=== PATIENT | male | born 1955 | race Caucasian/White ===

== ENCOUNTER 2018-10-26 14:59 | Outpatient (CLI) | payer OTHER ==
--- NOTE | 2018-10-26 15:22 | RAD ---
EXAM: Chest PA and lateral: HISTORY: Shortness of breath. Disability evaluation. COMPARISON: None FINDINGS: Heart: Normal Aorta: Unremarkable Pulmonary vessels: Normal Costophrenic angles: Costophrenic angles are clear. Lungs: There is scarring and retraction in the upper lobes. Lungs are hyperinflated. There is a well- circumscribed mass in the right midlung measuring 2.8 cm mediolateral. Craniocaudal dimension may be 4.2 cm. Pneumothorax: No pneumothorax Osseous structures: No osseous abnormalities IMPRESSION: 1. Scarring of the upper lobes with upward retraction of the bronchi. Hyperinflation is suspected. 2. Right lung mass. Malignancy cannot be excluded. CT is recommended. 3. CODE T
== END 2018-10-26 15:00 | disposition home or self-care (01) ==
LOC: BICRAD 14:59
PROVIDERS: ATTEND Internal Medicine
DX: Z02.71 Encounter for disability determination (principal); R91.8 Other nonspecific abnormal finding of lung field
CPT/HCPCS: 71046

== ENCOUNTER 2021-02-11 15:16 | Inpatient (IN) | payer MEDICARE, MEDICAID ==
[2021-02-11] MEDS ORDERED: Acetaminophen 325 MG TAB PO PRN (18:38)
[2021-02-11] MEDS ORDERED: hydrALAZINE 20 MG/ML VIAL SLOW IVP PRN (18:38)
[2021-02-11] MEDS ORDERED: Sodium Chloride 0.9% (PF) 10 ML VIAL FS PRN (18:45)
[2021-02-11] MEDS: Sodium Chloride 0.9% 1,000 ML IV SCH (18:58)
[2021-02-11 20:39] LABS: #Lymphocytes 1.9 thou/uL (1.20-3.40); #Monocytes 0.8 thou/uL (0.11-0.59); #Neutrophils 7.8 thou/uL (1.40-6.50); %Basophils 0.2 % (0.0-1.0); %Eosinophils 0.3 % (0.0-10.0); %Lymphocytes 17.6 % (21.0-51.0); %Neutrophils 73.9 % (42.0-75.0); Hemoglobin 9.3 g/dL (14.0-18.0); Mean Corpuscular HGB CONC 34.2 g/dL (32.0-36.0); Mean Corpuscular Hemoglobin 32.3 pg (27.0-31.0); Mean Corpuscular Volume 94.6 fL (78.0-98.0); Platelet Count 186 thou/uL (130-400); RBC Distribution Width 12.6 % (11.5-14.5); Red Blood Cell (RBC) Count 2.87 mill/uL (4.70-6.10); White Blood Cell (WBC) Count 10.5 thou/uL (4.8-10.8)
[2021-02-11] MEDS: Pantoprazole 40 MG VIAL IVP SCH (21:43)
[2021-02-12 04:34] LABS: #Eosinphils 0.1 thou/uL (0.0-0.7); #Lymphocytes 2.3 thou/uL (1.20-3.40); #Monocytes 0.5 thou/uL (0.11-0.59); #Neutrophils 5.2 thou/uL (1.40-6.50); %Basophils 0.2 % (0.0-1.0); %Eosinophils 1.7 % (0.0-10.0); %Lymphocytes 28.4 % (21.0-51.0); %Monocytes 6.1 % (0.0-10.0); %Neutrophils 63.5 % (42.0-75.0); Hemoglobin 8.2 g/dL (14.0-18.0); Mean Corpuscular HGB CONC 34.6 g/dL (32.0-36.0); Mean Corpuscular Hemoglobin 32.9 pg (27.0-31.0); Mean Corpuscular Volume 95.1 fL (78.0-98.0); Mean Platelet Volume 6.1 fL (7.4-10.4); Platelet Count 166 thou/uL (130-400); RBC Distribution Width 12.6 % (11.5-14.5); White Blood Cell (WBC) Count 8.2 thou/uL (4.8-10.8)
[2021-02-12 04:39] LABS: Anion Gap 8 mmol/L (10-20); BUN (Urea Nitrogen) 16 mg/dL (8.4-25.7); Calc. Creatinine Clearance 62 mL/min (70-130); Calcium 7.8 mg/dL (7.8-10.44); Carbon Dioxide 27 mmol/L (23-31); Chloride 106 mmol/L (98-107); Glucose 90 mg/dL (80-115); Potassium 3.3 mmol/L (3.5-5.1); Sodium 138 mmol/L (136-145)
[2021-02-12] MEDS: Sodium Chloride 0.9% 1,000 ML IV SCH ×2 (07:44→20:55)
[2021-02-12] MEDS ORDERED: Potassium Chloride 40 MEQ in Premix Bag 1 BAG IVPB SCH (08:15)
[2021-02-12] MEDS ORDERED: Potassium Chloride 40 MEQ in Sodium Chloride 0.9% 250 ML 250 ML IVPB SCH (08:30)
[2021-02-12] MEDS: Pantoprazole 40 MG VIAL IVP SCH (09:04)
[2021-02-12 09:11] LABS: PTT 27.4 sec (22.9-36.1); Prothrombin Time 12.7 sec (12.0-14.7)
[2021-02-12] MEDS ORDERED: Lidocaine 1% PF 5 ML VIAL ONE (11:26)
[2021-02-12] MEDS ORDERED: PROPOFOL 200 MG/20 ML VIAL ONE (11:26)
[2021-02-12] MEDS ORDERED: Promethazine HCl 25 MG/ML VIAL IM PRN (11:44)
[2021-02-12] MEDS ORDERED: Promethazine HCl 25 MG/ML VIAL IVPB PRN (11:44)
[2021-02-12] MEDS ORDERED: Ondansetron HCl/PF 4 MG/2 ML Vial IVP PRN (11:44)
[2021-02-12] MEDS ORDERED: NS 0.9% w/ 20 MEQ KCL 1,000 ML IV SCH (13:00)
[2021-02-12 15:24] VITALS: BMI 15.2
[2021-02-13 04:46] LABS: #Basophils 0.1 thou/uL (0.0-0.2); #Eosinphils 0.3 thou/uL (0.0-0.7); #Monocytes 0.5 thou/uL (0.11-0.59); #Neutrophils 5.4 thou/uL (1.40-6.50); %Basophils 0.7 % (0.0-1.0); %Eosinophils 3.2 % (0.0-10.0); %Lymphocytes 23.8 % (21.0-51.0); %Monocytes 6.6 % (0.0-10.0); %Neutrophils 65.8 % (42.0-75.0); Hemoglobin 6.8 g/dL (14.0-18.0); Mean Corpuscular HGB CONC 34.4 g/dL (32.0-36.0); Mean Corpuscular Hemoglobin 32.9 pg (27.0-31.0); Mean Corpuscular Volume 95.5 fL (78.0-98.0); Mean Platelet Volume 6.1 fL (7.4-10.4); Platelet Count 172 thou/uL (130-400); RBC Distribution Width 12.6 % (11.5-14.5); Red Blood Cell (RBC) Count 2.06 mill/uL (4.70-6.10); White Blood Cell (WBC) Count 8.2 thou/uL (4.8-10.8)
[2021-02-13 05:13] LABS: ALT (SGPT) 12 U/L (8-55); AST (SGOT) 17 U/L (5-34); Albumin 2.6 g/dL (3.4-4.8); Alkaline Phosphatase 40 U/L (40-110); Anion Gap 8 mmol/L (10-20); BUN (Urea Nitrogen) 13 mg/dL (8.4-25.7); Bilirubin, Total 0.3 mg/dL (0.2-1.2); Calc. Creatinine Clearance 66 mL/min (70-130); Calcium 8.1 mg/dL (7.8-10.44); Carbon Dioxide 26 mmol/L (23-31); Chloride 103 mmol/L (98-107); Glucose 100 mg/dL (80-115); Potassium 3.9 mmol/L (3.5-5.1); Protein, Total 4.6 g/dL (5.8-8.1); Sodium 133 mmol/L (136-145)
[2021-02-13] MEDS: Sodium Chloride 0.9% 1,000 ML IV SCH (10:01)
[2021-02-13] MEDS: Ondansetron PF 4 MG/2 ML Vial IVP PRN ×2 (10:03→18:16)
[2021-02-13] MEDS ORDERED: Iopamidol-370 76% 500 ML 1 ML ONE (10:42)
[2021-02-13 12:54] LABS: Hemoglobin 7.9 g/dL (14.0-18.0)
[2021-02-13 18:34] LABS: Hemoglobin 7.4 g/dL (14.0-18.0)
[2021-02-14] MEDS: Sodium Chloride 0.9% 1,000 ML IV SCH ×2 (00:45→13:30)
[2021-02-14 04:36] LABS: #Eosinphils 0.2 thou/uL (0.0-0.7); #Lymphocytes 1.9 thou/uL (1.20-3.40); #Monocytes 0.5 thou/uL (0.11-0.59); #Neutrophils 5.1 thou/uL (1.40-6.50); %Basophils 0.4 % (0.0-1.0); %Eosinophils 2.5 % (0.0-10.0); %Lymphocytes 24.3 % (21.0-51.0); %Neutrophils 66.8 % (42.0-75.0); Hemoglobin 6.9 g/dL (14.0-18.0); Mean Corpuscular HGB CONC 35.5 g/dL (32.0-36.0); Mean Corpuscular Hemoglobin 33.1 pg (27.0-31.0); Mean Corpuscular Volume 93.4 fL (78.0-98.0); Mean Platelet Volume 6.2 fL (7.4-10.4); Platelet Count 128 thou/uL (130-400); RBC Distribution Width 13.6 % (11.5-14.5); Red Blood Cell (RBC) Count 2.09 mill/uL (4.70-6.10); White Blood Cell (WBC) Count 7.7 thou/uL (4.8-10.8)
[2021-02-14 04:55] LABS: ALT (SGPT) 11 U/L (8-55); AST (SGOT) 12 U/L (5-34); Albumin 2.6 g/dL (3.4-4.8); Alkaline Phosphatase 33 U/L (40-110); Anion Gap 6 mmol/L (10-20); BUN (Urea Nitrogen) 18 mg/dL (8.4-25.7); Bilirubin, Total 0.4 mg/dL (0.2-1.2); Calc. Creatinine Clearance 62 mL/min (70-130); Calcium 7.7 mg/dL (7.8-10.44); Carbon Dioxide 24 mmol/L (23-31); Chloride 108 mmol/L (98-107); Globulin 1.8 g/dL (2.4-3.5); Glucose 97 mg/dL (80-115); Potassium 3.3 mmol/L (3.5-5.1); Protein, Total 4.4 g/dL (5.8-8.1); Sodium 135 mmol/L (136-145)
[2021-02-14 09:40] LABS: Magnesium 1.9 mg/dL (1.6-2.6)
[2021-02-14] MEDS: Potassium Chloride 20 MEQ in Premix Bag 1 BAG IVPB SCH ×2 (09:41→13:00)
[2021-02-14] MEDS: Pantoprazole 80 MG in Sodium Chloride 0.9% 100 ML IVPB SCH (16:12)
[2021-02-14 17:04] LABS: Hemoglobin 8.3 g/dL (14.0-18.0); Platelet Count 137 thou/uL (130-400)
[2021-02-15] MEDS: Pantoprazole 80 MG in Sodium Chloride 0.9% 100 ML IVPB SCH (01:05)
[2021-02-15] MEDS: Sodium Chloride 0.9% 1,000 ML IV SCH (04:32)
[2021-02-15 05:02] LABS: #Eosinphils 0.3 thou/uL (0.0-0.7); #Lymphocytes 1.6 thou/uL (1.20-3.40); #Monocytes 0.5 thou/uL (0.11-0.59); #Neutrophils 3.9 thou/uL (1.40-6.50); %Basophils 0.7 % (0.0-1.0); %Eosinophils 4.1 % (0.0-10.0); %Lymphocytes 25.1 % (21.0-51.0); %Monocytes 7.5 % (0.0-10.0); %Neutrophils 62.6 % (42.0-75.0); Mean Corpuscular HGB CONC 34.5 g/dL (32.0-36.0); Mean Corpuscular Hemoglobin 32.2 pg (27.0-31.0); Mean Corpuscular Volume 93.3 fL (78.0-98.0); Mean Platelet Volume 6.4 fL (7.4-10.4); Platelet Count 133 thou/uL (130-400); RBC Distribution Width 13.4 % (11.5-14.5); Red Blood Cell (RBC) Count 2.48 mill/uL (4.70-6.10); White Blood Cell (WBC) Count 6.2 thou/uL (4.8-10.8)
[2021-02-15 05:26] LABS: ALT (SGPT) 11 U/L (8-55); AST (SGOT) 15 U/L (5-34); Albumin 2.7 g/dL (3.4-4.8); Alkaline Phosphatase 34 U/L (40-110); Anion Gap 9 mmol/L (10-20); BUN (Urea Nitrogen) 10 mg/dL (8.4-25.7); Bilirubin, Total 0.9 mg/dL (0.2-1.2); Calc. Creatinine Clearance 66 mL/min (70-130); Calcium 7.6 mg/dL (7.8-10.44); Carbon Dioxide 21 mmol/L (23-31); Chloride 106 mmol/L (98-107); Globulin 1.9 g/dL (2.4-3.5); Glucose 96 mg/dL (80-115); Potassium 3.6 mmol/L (3.5-5.1); Protein, Total 4.6 g/dL (5.8-8.1); Sodium 132 mmol/L (136-145)
[2021-02-15 11:12] VITALS: BP 107/77; TEMP 98.2
== END 2021-02-15 13:22 | disposition home or self-care (01) | DRG 378 ==
LOC: 2NO 17:05
PROVIDERS: ADMIT Internal Medicine; ATTEND Family Medicine
PROC: 0DB68ZX Excision of Stomach, Via Natural or Artificial Opening Endoscopic, Diagnostic (ICD-10-PCS; principal; 2021-02-13)
PROC: 30233N1 Transfusion of Nonautologous Red Blood Cells into Peripheral Vein, Percutaneous Approach (ICD-10-PCS; 2021-02-13)
DX: K29.21 Alcoholic gastritis with bleeding (principal); E44.0 Moderate protein-calorie malnutrition; Z68.1 Body mass index [BMI] 19.9 or less, adult; D62 Acute posthemorrhagic anemia; I44.2 Atrioventricular block, complete; K52.9 Noninfective gastroenteritis and colitis, unspecified; I95.9 Hypotension, unspecified; D69.6 Thrombocytopenia, unspecified; E87.6 Hypokalemia; F10.10 Alcohol abuse, uncomplicated; J43.9 Emphysema, unspecified; Z87.891 Personal history of nicotine dependence; Z71.41 Alcohol abuse counseling and surveillance of alcoholic
CPT/HCPCS: 36415; 36430; 71045; 71260; 80048; 80053; 82607; 82746; 83735; 85025; 85610; 85730; 86850; 86900; 86901; 88305; 88312; 93005; 93010; 94640; C9113; J2405; J2704; J3480; J3490; J7050; J7620; P9016; Q9967

== ENCOUNTER 2022-02-11 18:05 | Inpatient (IN) | payer MEDICARE, MEDICAID ==
[2022-02-11 19:22] VITALS: BMI 17.3
[2022-02-11] MEDS ORDERED: Ondansetron PF 4 MG/2 ML Vial IVP PRN (21:34)
[2022-02-11] MEDS ORDERED: Senokot S 8.6-50 MG TAB PO PRN (21:34)
[2022-02-11] MEDS ORDERED: Bisacodyl 5 MG TAB PO PRN (21:34)
[2022-02-11] MEDS ORDERED: HYDROcodone/Acetaminophen 5/325 mg Tablet PO PRN (21:34)
[2022-02-11] MEDS ORDERED: Acetaminophen 325 MG TAB PO PRN (21:34)
[2022-02-11] MEDS ORDERED: Ondansetron ODT 4 MG TAB PO PRN (21:34)
[2022-02-11] MEDS ORDERED: Ketorolac Tromethamine 30 MG/ML VIAL IVP PRN (21:40)
[2022-02-11] MEDS: Sodium Chloride 0.9% 1,000 ML IV SCH (22:00)
[2022-02-11 22:17] LABS: Lactic Acid 2.1 mmol/L (0.5-2.2)
[2022-02-12 04:15] LABS: #Eosinphils 0.1 thou/uL (0.0-0.7); #Lymphocytes 1.6 thou/uL (1.20-3.40); #Monocytes 1.4 thou/uL (0.11-0.59); #Neutrophils 9.1 thou/uL (1.40-6.50); %Basophils 0.1 % (0.0-1.0); %Eosinophils 1.1 % (0.0-10.0); %Monocytes 11.5 % (0.0-10.0); %Neutrophils 74.2 % (42.0-75.0); Hemoglobin 10.3 g/dL (14.0-18.0); Mean Corpuscular HGB CONC 33.7 g/dL (32.0-36.0); Mean Corpuscular Hemoglobin 30.1 pg (27.0-31.0); Mean Corpuscular Volume 89.3 fL (78.0-98.0); Mean Platelet Volume 6.1 fL (7.4-10.4); Platelet Count 267 thou/uL (130-400); RBC Distribution Width 13.5 % (11.5-14.5); Red Blood Cell (RBC) Count 3.42 mill/uL (4.70-6.10); White Blood Cell (WBC) Count 12.2 thou/uL (4.8-10.8)
[2022-02-12] MEDS ORDERED: Potassium Chloride 20 MEQ TAB PO SCH (04:30)
[2022-02-12 04:36] LABS: ALT (SGPT) 8 U/L (8-55); AST (SGOT) 9 U/L (5-34); Albumin 3.1 g/dL (3.4-4.8); Alkaline Phosphatase 58 U/L (40-110); Anion Gap 10 mmol/L (10-20); BUN (Urea Nitrogen) 12 mg/dL (8.4-25.7); Bilirubin, Total 0.6 mg/dL (0.2-1.2); Calc. Creatinine Clearance 69 mL/min (70-130); Calcium 8.2 mg/dL (7.8-10.44); Carbon Dioxide 25 mmol/L (23-31); Chloride 106 mmol/L (98-107); Estimated GFR 96; Globulin 2.5 g/dL (2.4-3.5); Glucose 106 mg/dL (80-115); Potassium 3.4 mmol/L (3.5-5.1); Protein, Total 5.6 g/dL (5.8-8.1); Sodium 138 mmol/L (136-145)
[2022-02-12] MEDS: Ibuprofen 600 MG TAB PO SCH ×3 (05:07→21:18)
[2022-02-12] MEDS: Sodium Chloride 0.9% 1,000 ML IV SCH ×3 (05:09→16:56)
[2022-02-12 05:11] LABS: Magnesium 1.8 mg/dL (1.6-2.6)
[2022-02-12] MEDS ORDERED: Famotidine 20 MG TAB PO SCH (09:00)
[2022-02-12] MEDS: Enoxaparin Sodium 30 MG/0.3 ML SYRINGE SC SCH (09:24)
[2022-02-12] MEDS: Colchicine 0.6 MG TAB PO SCH (09:24)
[2022-02-12] MEDS ORDERED: Electrolyte Replacement Protocol 1 EACH FS SCH (14:30)
[2022-02-12] MEDS ORDERED: Electrolyte Replacement Protocol FS PRN (14:30)
[2022-02-12] MEDS ORDERED: Magnesium 2 GM/50 ML(in water) 2 GM in Premix Bag 1 BAG IVPB SCH (14:30)
[2022-02-12] MEDS ORDERED: guaiFENesin ER 600 MG TAB PO SCH (21:00)
[2022-02-13] MEDS ORDERED: Digoxin 0.5 MG/2 ML AMP SLOW IVP SCH ×2 (01:00→05:00)
[2022-02-13] MEDS: Sodium Chloride 0.9% 1,000 ML IV SCH (01:38)
[2022-02-13] MEDS: Amiodarone 450 MG, Admixture Fee 1 EACH in Dextrose 5% in Water 250 ML IVPB SCH ×2 (01:38→10:01)
[2022-02-13 01:45] LABS: ALT (SGPT) 9 U/L (8-55); AST (SGOT) 13 U/L (5-34); Albumin 3.3 g/dL (3.4-4.8); Alkaline Phosphatase 79 U/L (40-110); Bilirubin, Direct 0.3 mg/dL (0.1-0.3); Bilirubin, Total 0.6 mg/dL (0.2-1.2); Protein, Total 6.3 g/dL (5.8-8.1)
[2022-02-13 04:48] LABS: #Eosinphils 0.3 thou/uL (0.0-0.7); #Lymphocytes 1.1 thou/uL (1.20-3.40); #Monocytes 1.1 thou/uL (0.11-0.59); #Neutrophils 8.6 thou/uL (1.40-6.50); %Basophils 0.3 % (0.0-1.0); %Eosinophils 2.5 % (0.0-10.0); %Lymphocytes 9.5 % (21.0-51.0); %Monocytes 9.7 % (0.0-10.0); %Neutrophils 78.1 % (42.0-75.0); Hemoglobin 10.6 g/dL (14.0-18.0); Mean Corpuscular Hemoglobin 29.6 pg (27.0-31.0); Mean Corpuscular Volume 89.5 fL (78.0-98.0); Platelet Count 268 thou/uL (130-400); RBC Distribution Width 13.6 % (11.5-14.5); Red Blood Cell (RBC) Count 3.58 mill/uL (4.70-6.10)
[2022-02-13 05:15] LABS: ALT (SGPT) 8 U/L (8-55); AST (SGOT) 12 U/L (5-34); Albumin 2.8 g/dL (3.4-4.8); Alkaline Phosphatase 67 U/L (40-110); Anion Gap 12 mmol/L (10-20); BUN (Urea Nitrogen) 7 mg/dL (8.4-25.7); Bilirubin, Total 0.4 mg/dL (0.2-1.2); CRP (Inflammatory) 14.67 mg/dL (= or < 0.5); Calc. Creatinine Clearance 73 mL/min (70-130); Calcium 7.5 mg/dL (7.8-10.44); Carbon Dioxide 21 mmol/L (23-31); Chloride 110 mmol/L (98-107); Estimated GFR 98; Globulin 2.1 g/dL (2.4-3.5); Glucose 117 mg/dL (80-115); Potassium 3.7 mmol/L (3.5-5.1); Protein, Total 4.9 g/dL (5.8-8.1); Sodium 139 mmol/L (136-145)
[2022-02-13 05:16] LABS: Magnesium 2.3 mg/dL (1.6-2.6)
[2022-02-13] MEDS: Ibuprofen 600 MG TAB PO SCH ×2 (05:31→12:47)
[2022-02-13] MEDS ORDERED: Mometasone/Formoterol 200/5 60 PUFF INH SCH (08:45)
[2022-02-13] MEDS: Colchicine 0.6 MG TAB PO SCH (08:57)
[2022-02-13] MEDS: Amoxicillin/Potassium Clav 875 MG TAB PO SCH ×2 (08:57→21:03)
[2022-02-13] MEDS: guaiFENesin ER 600 MG TAB PO SCH ×2 (08:58→21:03)
[2022-02-13] MEDS: Enoxaparin Sodium 30 MG/0.3 ML SYRINGE SC SCH (08:58)
[2022-02-13] MEDS: Doxycycline 100 MG CAP PO SCH ×2 (08:58→21:04)
[2022-02-13] MEDS ORDERED: Amiodarone 200 MG TAB PO SCH (12:00)
[2022-02-13] MEDS: Mometasone 200 MCG/Formoterol 5 MCG 120 PUFF INHALER INH SCH (19:28)
[2022-02-13] MEDS: Amiodarone 200 MG TAB PO SCH (21:04)
[2022-02-14] MEDS: Mometasone 200 MCG/Formoterol 5 MCG 120 PUFF INHALER INH SCH (07:11)
[2022-02-14 08:47] LABS: #Eosinphils 0.2 thou/uL (0.0-0.7); #Lymphocytes 1.3 thou/uL (1.20-3.40); #Monocytes 1.1 thou/uL (0.11-0.59); #Neutrophils 10.7 thou/uL (1.40-6.50); %Basophils 0.1 % (0.0-1.0); %Eosinophils 1.8 % (0.0-10.0); %Lymphocytes 9.7 % (21.0-51.0); %Monocytes 8.2 % (0.0-10.0); %Neutrophils 80.3 % (42.0-75.0); Hemoglobin 11.9 g/dL (14.0-18.0); Mean Corpuscular Hemoglobin 28.1 pg (27.0-31.0); Mean Corpuscular Volume 87.6 fL (78.0-98.0); Mean Platelet Volume 5.9 fL (7.4-10.4); Platelet Count 352 thou/uL (130-400); RBC Distribution Width 13.6 % (11.5-14.5); Red Blood Cell (RBC) Count 4.25 mill/uL (4.70-6.10); White Blood Cell (WBC) Count 13.4 thou/uL (4.8-10.8)
[2022-02-14 09:06] LABS: Anion Gap 14 mmol/L (10-20); BUN (Urea Nitrogen) 7 mg/dL (8.4-25.7); Calc. Creatinine Clearance 72 mL/min (70-130); Calcium 8.4 mg/dL (7.8-10.44); Carbon Dioxide 22 mmol/L (23-31); Chloride 105 mmol/L (98-107); Estimated GFR 97; Glucose 95 mg/dL (80-115); Potassium 3.8 mmol/L (3.5-5.1); Sodium 137 mmol/L (136-145)
[2022-02-14] MEDS ORDERED: Potassium Chloride 20 MEQ TAB PO SCH (09:30)
[2022-02-14] MEDS ORDERED: Colchicine 0.6 MG TAB PO SCH (09:34)
[2022-02-14] MEDS ORDERED: Colchicine 0.3 MG TAB PO SCH ×2 (09:45→21:00)
[2022-02-14] MEDS: Amiodarone 200 MG TAB PO SCH (09:59)
[2022-02-14] MEDS: Amoxicillin/Potassium Clav 875 MG TAB PO SCH (09:59)
[2022-02-14] MEDS: Doxycycline 100 MG CAP PO SCH (09:59)
[2022-02-14] MEDS: guaiFENesin ER 600 MG TAB PO SCH (10:00)
[2022-02-14 12:38] VITALS: BP 156/75; TEMP 97.7
[2022-02-14] MEDS: Colchicine 0.6 MG TAB PO SCH (13:25)
[2022-02-14] MEDS ORDERED: Ibuprofen 600 MG TAB PO SCH (14:00)
[2022-02-14] MEDS ORDERED: Famotidine 20 MG TAB PO SCH (21:00)
== END 2022-02-14 14:55 | disposition home or self-care (01) | DRG 314 ==
LOC: 2NO 18:37 → INTOOBSV 18:37 → OBSVTOIN 02-13 16:06
PROVIDERS: ADMIT Family Medicine; ATTEND Internal Medicine
DX: I30.9 Acute pericarditis, unspecified (principal); A41.50 Gram-negative sepsis, unspecified; J15.6 Pneumonia due to other Gram-negative bacteria; R64 Cachexia; Z68.1 Body mass index [BMI] 19.9 or less, adult; E87.2 Acidosis; E44.0 Moderate protein-calorie malnutrition; Z20.822 Contact with and (suspected) exposure to COVID-19; E87.6 Hypokalemia; D64.9 Anemia, unspecified; F12.10 Cannabis abuse, uncomplicated; E86.0 Dehydration; E83.42 Hypomagnesemia; E53.8 Deficiency of other specified B group vitamins; J44.9 Chronic obstructive pulmonary disease, unspecified; I48.91 Unspecified atrial fibrillation; Z79.82 Long term (current) use of aspirin; Z79.899 Other long term (current) drug therapy; Z90.49 Acquired absence of other specified parts of digestive tract; Z87.891 Personal history of nicotine dependence
CPT/HCPCS: 36415; 71046; 80048; 80053; 83605; 83735; 84145; 84443; 85025; 86140; 93306; 94640; 96365; 96366; 96372; 96375; 96376; G0378; J0282; J1160; J1650; J2405; J3475; J7050; J7070; J7620; U0003; U0005